=== PATIENT | male | born 1980 | race Caucasian/White ===

== ENCOUNTER 2017-05-22 21:56 | Inpatient (IN) ==
[2017-05-22] MEDS ORDERED: *HR* Morphine 2 MG/ML SYRINGE IVP PRN (23:48)
[2017-05-22] MEDS ORDERED: Naloxone 0.4 MG/ML INJ IVP PRN (23:48)
[2017-05-22] MEDS ORDERED: Ketorolac 15 MG/ML VIAL IVP PRN (23:48)
[2017-05-22] MEDS ORDERED: Acetaminophen 325 MG TABLET PO PRN (23:48)
--- NOTE | 2017-05-23 00:13 | Internal Med History&Physical ---
Date of Encounter: 05/23/17 Time of Encounter: 00:12 Assessment and Plan (1) Septic joint of left knee joint Current visit: No Status: Acute Discussed with ED physician who has discussed the case with Dr Gore Orthopedic surgery. IV fluids, his IV cefepime, and nothing by mouth for now until evaluation by orthopedics in the morning. Blood cultures and fluid analysis fluid culture sent from [place] ED. Send ESR CRP trend lactate Qualifiers: Septic arthritis organism: due to unspecified organism Qualified Code(s): M00.9 - Pyogenic arthritis, unspecified (2) Cellulitis of back Current visit: Yes Status: Acute Cellulitis. Possible early abscess but was unable to express any collection on examination. Continue IV antibiotics cefepime for now. Monitor site closely. Consider I&D if collection worsens (3) Gouty arthritis of toe of left foot Current visit: No Status: Acute Continue medications. IV morphine IV NSAIDs for pain as needed Internal Medicine - H&P: HPI Chief complaint: Left toe swelling, back cellulitis, left knee joint swelling, fever History of present illness: Mr. Chavarria is a 36 year old male who presents as a transfer from [place] ED. He presented with early abscess /cellulitis of his back where his family has been squeezing up for the last few days along with left great toe swelling felt to be related to his hx of gout. He also had a swollen left knee and a temp of 101.4 and completed a knee tap at [facility] with turbid fluid suspicious for septic joint. ED at [place] d/w ortho provider relations consultant Dr Gore and ran through plan of unasyn, transfer to [facility] for further care. Blood cx and knee fluid cx and analysis were sent from [place] to [facility] lab. On review, he admits to THC use but denies IVDU or other drugs Past Med Surg Social Fam HX - Past Medical History Medical history: no medical history, other Psychiatric history: no psych history - Social History Smoking Status: Current every day smoker Smokeless Tobacco Status: No Alcohol use: rarely Drug use: marijuana - Family History Father Living Status: Still Living Hx Family Endocrine Disorder: Yes Internal Medicine - H&P: Meds Colchicine [Mitigare] 0.6 mg PO Q6-8H PRN #21 capsule 05/22/17 [Rx] Etodolac [Etodolac ER] 400 mg PO DAILY #20 tab.er.24h 05/22/17 [Rx] Sulfamethoxazole/Trimeth DS [Bactrim DS] 1 each PO BID #14 tablet 05/22/17 [Rx] Allergies No Known Allergies Allergy (Verified 11/07/16 00:24) All Systems PM: A 10-system review of systems was performed and is negative for pertinent findings except as documented above in the HPI. Review of systems: ROS 14 point review of systems reviewed as best as possible given presentation. Pertinent positive or negative as per HPI or otherwise reviewed as negative - Constitutional Vitals: Temp Pulse Resp BP Pulse Ox 99.0 F 86 17 119/77 98 05/22/17 23:59 05/22/17 23:59 05/22/17 23:59 05/22/17 23:59 05/22/17 23:59 Exam: General - AAO x 3 Psych - Appropriate affect/speech. No agitation Eyes - MALINA. Eye lids intact. No scleral icterus ENT - Oral mucosa pink, dentition intact. External ear clear/dry/intact. No thyromegaly Lymphatics - No cervical/inguinal lympadenopathy Neuro - No gross peripheral or central neuro deficits with intact CN 2-12 exam Heart - Sinus. RRR. S1 and S2 present. No added HS/murmurs appreciated. No elevated JVD appreciated. No calf swellings/erythema Lung - Adequate air entry b/l, No crackes/wheezes appreciated GI - Soft, non-tender. No hepatosplenomegaly/ascities. BS+ - No CVA/suprapubic tenderness or palpable bladder distension Skin - cellulitis of the back MSK - left knee joint swelling, left big toe swelling with erythema
[2017-05-23] MEDS: 0.9 % Sodium Chloride 1,000 ML IVC SCH ×2 (00:57→13:06)
[2017-05-23] MEDS: Cefepime HCl 2,000 MG in D5% in Water (Mini-Bag+) 100 ML IVPB SCH ×2 (03:14→17:19)
[2017-05-23] MEDS ORDERED: D5% in Water 1,000 ML IVC PRN (03:38)
[2017-05-23] MEDS ORDERED: Dextrose Gel 15 GM PO PRN ×2 (03:38)
[2017-05-23] MEDS ORDERED: *HR* Dextrose 50 % in Water (Syg) 50 ML SYRINGE IVP PRN (03:38)
[2017-05-23] MEDS: *HR* Enoxaparin 40 MG/0.4 ML SYRINGE SQ SCH (05:15)
[2017-05-23 06:38] LABS: Hematocrit 41.1 % (37.5-50.1); Hemoglobin 14.4 g/dL (12.9-16.9); Mean Corpuscular Hemoglobin 30.4 pg (28.0-33.3); Mean Corpuscular Volume 86.7 fL (83.0-100.0); Mean Platelet Volume 11.1 fL (9.4-12.4); Platelet Count 212 K/mcL (140-400); Red Blood Count 4.74 M/mcL (4.19-5.50); Red Cell Distribution Width 12.5 % (11.5-14.5)
[2017-05-23 07:02] LABS: BUN/Creatinine Ratio 16 (6-26); Blood Urea Nitrogen 13 mg/dL (8-26); Calcium 9.3 mg/dL (8.6-10.8); Carbon Dioxide 21 mEq/L (19-29); Chloride 107 mEq/L (98-109); Glucose 355 mg/dL (70-99); Osmolality,Calculated 300 (280-300); Sodium 138 mEq/L (136-145); eGFR For African Americans > 60 (> 60); eGFR For Non-African Americans > 60 (> 60)
[2017-05-23 07:03] LABS: C-Reactive Protein 209 mg/L (Less than 5)
[2017-05-23 07:26] LABS: Hemoglobin A1C 7.8 %
--- NOTE | 2017-05-23 07:42 | Orthopedic Consult Note ---
Date of Encounter: 05/23/17 Time of Encounter: 07:40 History of Present Illness HPI: Mr. Chavarria is a 36 year old male With a history of gout, patient seen in the [place] ER yesterday. Temperature spike elevated white cell concern for infection of back and knee. Physical exam Patient no distress. Examination of left knee no swelling or erythema Pain-free range of motion Neurovascular intact No suspicion of infection in left knee. Contacted [place] ER to check on aspiration results from knee nothing reported yet. We will continue to monitor patient with elevated CRP of unknown origin but based on evaluation of left knee which looks normal do not think that this is the source. Past Med Surg Social Fam HX - Past Medical History Medical history: no medical history, other Psychiatric history: no psych history - Social History Smoking Status: Current every day smoker Smokeless Tobacco Status: No Alcohol use: rarely Drug use: marijuana - Family History Father Living Status: Still Living Hx Family Endocrine Disorder: Yes Medications and Allergies Colchicine [Mitigare] 0.6 mg PO Q6-8H PRN #21 capsule 05/22/17 [Rx] Etodolac [Etodolac ER] 400 mg PO DAILY #20 tab.er.24h 05/22/17 [Rx] Sulfamethoxazole/Trimeth DS [Bactrim DS] 1 each PO BID #14 tablet 05/22/17 [Rx] Allergies No Known Allergies Allergy (Verified 11/07/16 00:24) All Systems Reviewed: A 10-system review of systems was performed and is negative for pertinent findings except as documented above in the HPI. Physical Exam - Constitutional Vitals: Temp Pulse Resp BP Pulse Ox 98.7 F 91 16 154/86 96 05/23/17 06:54 05/23/17 06:54 05/23/17 06:54 05/23/17 06:54 05/23/17 06:54 Results - Labs Result Diagrams: 05/23/17 06:28 05/23/17 06:28 Labs: Abnormal lab results WBC 15.9 K/mcL (4.3-11.1) H 05/23/17 06:28 ESR 73 mm/hr (0-10) H 05/23/17 06:28 Glucose 355 mg/dL (70-99) H 05/23/17 06:28 Hemoglobin A1c 7.8 % (-5.6) H 05/23/17 06:28 C-Reactive Protein 209 mg/L (Less than 5) H 05/23/17 06:28 H & H 05/23/17 Range/Units 06:28 Hgb 14.4 (12.9-16.9) g/dL Hct 41.1 (37.5-50.1) % All other labs normal. Consult Discharge Plan - Plan Referrals: Shanda Sotelo CNP [Primary Care Provider] -
[2017-05-23] MEDS ORDERED: Vancomycin 1,000 MG in D5% in Water 250 ML IVPB SCH (07:59)
[2017-05-23] MEDS: Insulin LISPRO 300 UNITS/3 ML VIAL SQ SCH ×4 (09:00→21:19)
[2017-05-23] MEDS: Vancomycin 1,250 MG in D5% in Water 250 ML IVPB SCH ×2 (10:33→21:16)
[2017-05-23] MEDS: Diclofenac Sodium (24 HR) 100 MG TABLET PO SCH (10:39)
[2017-05-23] MEDS: Nicotine 21 MG PATCH.TD24 TD SCH (11:21)
--- NOTE | 2017-05-23 14:26 | Event Note ---
Date of Encounter: 05/23/17 Time of Encounter: 12:35 Pt is a 36y/o male transferred from [place] ER for elevated WBC and swollen left knee concerning for septic arthritis. Pt was seen and examined. He has been evaluated by orthopedic surgery and does not clinically appear to have any infection in the left knee as per orthopedic surgery. He is to continue on empiric abx at this time given leukocytosis and elevated ESR and f/u blood cultures. Noted to be hyperglycemic, increased to high dose insulin sliding scale
[2017-05-23] MEDS ORDERED: Insulin LISPRO 300 UNITS/3 ML VIAL SQ SCH (21:00)
[2017-05-23] MEDS: *HR* HYDROcodone/Acet 5/325 mg TABLET PO PRN (21:22)
--- NOTE | 2017-05-24 01:06 | Orthopedics Progress Note ---
Date of Encounter: 05/24/17 Time of Encounter: 01:04 Subjective Interval history: Patient seen this morning states his knee is feeling better no erythema pain- free motion. Aspiration from [place] preliminary results of Gram stain showed no bacteria many white cells Still low suspicion of septic arthritis continue with present care as per medical team Objective Vital signs: Vital Signs Temp Pulse Resp BP Pulse Ox 05/24/17 00:55 98.2 F 66 17 131/80 97 05/23/17 21:37 98.5 F 78 17 140/80 97 05/23/17 14:16 98.8 F 76 16 144/83 96 05/23/17 10:26 98.5 F 84 18 148/76 95 05/23/17 09:25 96 05/23/17 06:54 98.7 F 91 16 154/86 96 05/23/17 05:04 98.2 F 83 18 158/83 98 Intake and Output 05/23/17 05/23/17 05/24/17 15:59 23:59 07:59 Intake Total 1350 / 1350 1300 / 1300 Output Total 950 / 950 1500 / 1500 Balance 400 / 400 -200 / -200 Intake: IV Fluids 1350 / 1350 250 / 250 0.9 % Sodium Chloride 1, 1000 / 1000 000 ML @ 100 mls/hr IVC . Q10H [facility] Rx#:[id number] Maxipime 2,000 MG In 100 / 100 Dextrose 5% (Minibag+) 100 ML 100 ML @ 200 mls/ hr IVPB Q12H [facility] Rx#: [id number] Vancocin 1,250 MG In 250 / 250 250 / 250 Dextrose 5% 250 ML @ 166. 67 mls/hr IVPB Q12H [facility] Rx#:[id number] Oral 0 / 0 1050 / 1050 Output: Urine 950 / 950 1500 / 1500 Other: Meal Dinner Percent of Meal Consumed 100% Blood Glucose* 355 189 - Labs CBC & BMP: 05/23/17 06:28 05/23/17 06:28 Labs: Abnormal lab results WBC 15.9 K/mcL (4.3-11.1) H 05/23/17 06:28 ESR 73 mm/hr (0-10) H 05/23/17 06:28 Glucose 355 mg/dL (70-99) H 05/23/17 06:28 POC Glucose 189 (58-89) H 05/23/17 20:04 Hemoglobin A1c 7.8 % (-5.6) H 05/23/17 06:28 C-Reactive Protein 209 mg/L (Less than 5) H 05/23/17 06:28 Consult Discharge Plan - Plan Referrals: Shanda Sotelo, POSTAL TRANSPORTATION CLERK [Primary Care Provider] -
[2017-05-24 01:23] LABS: Basophils # 0.1 K/mcL (0.0-0.2); Basophils % 0.3 %; Eosinophils # 0.2 K/mcL (0.0-0.6); Hematocrit 39.3 % (37.5-50.1); Hemoglobin 13.8 g/dL (12.9-16.9); Immature Granulocytes % 0.5 % (0-4); Lymphocytes # 4.2 K/mcL (0.6-4.6); Lymphocytes % 20.2 %; Mean Corpuscular HGB Conc 35.1 g/dL (31.6-35.5); Mean Corpuscular Hemoglobin 30.4 pg (28.0-33.3); Mean Corpuscular Volume 86.6 fL (83.0-100.0); Mean Platelet Volume 10.6 fL (9.4-12.4); Monocytes # 0.9 K/mcL (0.0-1.3); Monocytes % 4.2 %; Neutrophils # 15.4 K/mcL (1.6-8.9); Platelet Count 274 K/mcL (140-400); Red Blood Count 4.54 M/mcL (4.19-5.50); Red Cell Distribution Width 12.5 % (11.5-14.5); Segmented Neutrophils % 73.8 %
[2017-05-24 01:38] LABS: BUN/Creatinine Ratio 19 (6-26); Blood Urea Nitrogen 13 mg/dL (8-26); Calcium 9.4 mg/dL (8.6-10.8); Carbon Dioxide 24 mEq/L (19-29); Chloride 107 mEq/L (98-109); Glucose 151 mg/dL (70-99); Osmolality,Calculated 295 (280-300); Phosphorous 3.3 mg/dL (2.3-4.7); Potassium 3.4 mEq/L (3.5-4.5); Sodium 141 mEq/L (136-145); eGFR For African Americans > 60 (> 60); eGFR For Non-African Americans > 60 (> 60)
[2017-05-24] MEDS: Cefepime HCl 2,000 MG in D5% in Water (Mini-Bag+) 100 ML IVPB SCH ×2 (03:51→16:35)
[2017-05-24] MEDS: *HR* Enoxaparin 40 MG/0.4 ML SYRINGE SQ SCH (05:36)
[2017-05-24] MEDS: 0.9 % Sodium Chloride 1,000 ML IVC SCH (05:36)
[2017-05-24] MEDS: Diclofenac Sodium (24 HR) 100 MG TABLET PO SCH (09:03)
[2017-05-24] MEDS: Nicotine 21 MG PATCH.TD24 TD SCH (09:03)
[2017-05-24] MEDS: Vancomycin 1,250 MG in D5% in Water 250 ML IVPB SCH (09:03)
[2017-05-24] MEDS: Insulin LISPRO 300 UNITS/3 ML VIAL SQ SCH ×4 (09:04→22:36)
--- NOTE | 2017-05-24 11:19 | Internal Med Progress Note ---
Date of Encounter: 05/24/17 Time of Encounter: 11:17 - Assessment and plan (1) Septic joint of left knee joint Current Visit: No Status: Acute Assessment and plan: s/p join aspiration orthopedic consultation appreciated will continue IV abx at this time f/u cultures Qualifiers: Septic arthritis organism: due to unspecified organism Qualified Code(s): M00.9 - Pyogenic arthritis, unspecified (2) Cellulitis of back Current Visit: Yes Status: Acute Assessment and plan: continue empiric IV abx at this time (3) DVT prophylaxis Current Visit: Yes Status: Acute Assessment and plan: Lovenox SQ (4) Electrolyte abnormality Current Visit: Yes Status: Acute Assessment and plan: Hypokalemia K supplemented continue to monitor electrolytes and replace as needed (5) Gouty arthritis of toe of left foot Current Visit: No Status: Chronic - Subjective Interval history: Pt seen and examined at bedside. Pt noted to be ambulating around the [place] and reports of feeling better. Noted to have worsening leukocytosis but denies any fevers or chills. Denies any sob, cough, dysuria. No overnight events reported. - Constitutional Vitals: Temp Pulse Resp BP Pulse Ox 97.7 F 62 15 114/71 96 05/24/17 07:24 05/24/17 07:24 05/24/17 07:24 05/24/17 07:24 05/24/17 07:24 General appearance: Present: A&O X 3, no acute distress - Head Head exam: Present: atraumatic, normocephalic - Eye Eye exam: Present: conjuntiva pink, sclera anicteric - Respiratory Respiratory exam: Present: CTAB. Absent: accessory muscle use, rales, rhonchi, wheezes - Cardiovascular Cardiovascular exam: Present: RRR, +S1, +S2. Absent: diastolic murmur, gallop, rubs, systolic murmur - GI/Abdominal GI/Abdominal exam: Present: normal bowel sounds, soft, no peritoneal signs. Absent: distended, tenderness - Extremities Exam Extremities exam: Present: warm, radial pulses palpable and symetrical (left knee swelling, mild erythema noted). Absent: calf tenderness - Neurological Exam Neurological exam: Present: alert, oriented X3 - Psychiatric Psychiatric exam: Present: normal affect, normal mood - Skin Additional comments: erythema noted on lower right lateral back Internal Medicine: Result - Labs CBC & Chem 7: 05/24/17 01:10 05/24/17 01:10 Labs: Short CBC 05/24/17 Range/Units 01:10 WBC 20.9 H (4.3-11.1) K/mcL Hgb 13.8 (12.9-16.9) g/dL Hct 39.3 (37.5-50.1) % Plt Count 274 (140-400) K/mcL Neutrophils # 15.4 H (1.6-8.9) K/mcL BMP 05/24/17 01:10 Sodium 141 Potassium 3.4 L Chloride 107 Carbon Dioxide 24 BUN 13 Creatinine 0.67 L Glucose 151 H Calcium 9.4 Consult Discharge Plan - Plan Referrals: Shanda Sotelo, KNOWLEDGE ARCHITECT [Primary Care Provider] -
[2017-05-24 11:20] LABS: Bilirubin,Urine Negative (Negative); Blood,Urine Negative (Negative); Clarity,Urine Clear (Clear); Color,Urine Yellow (Yellow); Glucose,Urine (UA) Normal (Normal); Ketones,Urine Negative (Negative); Leukocyte Esterase,Urine Negative (Negative); Nitrite,Urine Negative (Negative); Protein,Urine Negative (Neg-Trace); Urobilinogen,Urine Normal (Normal)
[2017-05-24] MEDS: Vancomycin 1,500 MG in D5% in Water 250 ML IVPB SCH (22:36)
[2017-05-24] MEDS: *HR* HYDROcodone/Acet 5/325 mg TABLET PO PRN (22:58)
[2017-05-25] MEDS: Cefepime HCl 2,000 MG in D5% in Water (Mini-Bag+) 100 ML IVPB SCH (04:14)
[2017-05-25] MEDS: *HR* Enoxaparin 40 MG/0.4 ML SYRINGE SQ SCH (05:12)
[2017-05-25 05:31] LABS: Basophils # 0.1 K/mcL (0.0-0.2); Basophils % 0.9 %; Eosinophils # 0.5 K/mcL (0.0-0.6); Eosinophils % 3.9 %; Hematocrit 42.2 % (37.5-50.1); Hemoglobin 14.4 g/dL (12.9-16.9); Immature Granulocytes % 0.7 % (0-4); Lymphocytes # 4.5 K/mcL (0.6-4.6); Mean Corpuscular HGB Conc 34.1 g/dL (31.6-35.5); Mean Corpuscular Hemoglobin 29.8 pg (28.0-33.3); Mean Corpuscular Volume 87.2 fL (83.0-100.0); Mean Platelet Volume 10.5 fL (9.4-12.4); Monocytes # 0.6 K/mcL (0.0-1.3); Monocytes % 4.9 %; Neutrophils # 6.7 K/mcL (1.6-8.9); Platelet Count 321 K/mcL (140-400); Red Blood Count 4.84 M/mcL (4.19-5.50); Red Cell Distribution Width 12.6 % (11.5-14.5); Segmented Neutrophils % 53.6 %
[2017-05-25 05:47] LABS: BUN/Creatinine Ratio 16 (6-26); Blood Urea Nitrogen 11 mg/dL (8-26); Calcium 9.2 mg/dL (8.6-10.8); Carbon Dioxide 26 mEq/L (19-29); Chloride 107 mEq/L (98-109); Glucose 126 mg/dL (70-99); Magnesium 1.7 mg/dL (1.6-2.6); Osmolality,Calculated 297 (280-300); Potassium 3.4 mEq/L (3.5-4.5); Sodium 143 mEq/L (136-145); eGFR For African Americans > 60 (> 60); eGFR For Non-African Americans > 60 (> 60)
[2017-05-25 05:48] LABS: Phosphorous 5.3 mg/dL (2.3-4.7)
[2017-05-25] MEDS: Diclofenac Sodium (24 HR) 100 MG TABLET PO SCH (07:45)
[2017-05-25] MEDS: Nicotine 21 MG PATCH.TD24 TD SCH (07:45)
[2017-05-25] MEDS: Insulin LISPRO 300 UNITS/3 ML VIAL SQ SCH ×2 (07:49→13:25)
[2017-05-25] MEDS ORDERED: Potassium Chloride Elixir 20 MEQ/15 ML UDC PO ONE (08:30)
--- NOTE | 2017-05-25 08:54 | Orthopedics Progress Note ---
Date of Encounter: 05/25/17 Time of Encounter: 08:53 Subjective Interval history: Cultures reviewed no growth from left knee aspiration. Objective Vital signs: Vital Signs Temp Pulse Resp BP Pulse Ox 05/25/17 07:45 98.1 F 65 15 172/100 99 05/25/17 03:46 97.5 F L 63 16 126/74 94 05/25/17 00:03 98.3 F 62 18 123/79 97 05/24/17 22:42 96 05/24/17 19:35 98.5 F 70 18 130/87 97 05/24/17 15:26 98.1 F 72 16 128/79 99 05/24/17 11:18 98.1 F 68 16 130/86 98 Intake and Output 05/24/17 05/25/17 05/25/17 23:59 07:59 15:59 Intake Total 300 / 300 400 / 400 Output Total 1065 / 1065 1600 / 1600 Balance -765 / -765 -1200 / -1200 Intake: IV Fluids 100 / 100 Maxipime 2,000 MG In 100 / 100 Dextrose 5% (Minibag+) 100 ML 100 ML @ 200 mls/ hr IVPB Q12H [facility] Rx#: [id number] Oral 200 / 200 400 / 400 Output: Urine 1065 / 1065 1600 / 1600 Other: # Voids 1 Weight 89.5 kg Blood Glucose* 150 Patient Weight 05/25/17 23:59 Weight 89.5 kg - Labs CBC & BMP: 05/25/17 04:42 05/25/17 04:42 Labs: Abnormal lab results WBC 12.6 K/mcL (4.3-11.1) H 05/25/17 04:42 ESR 73 mm/hr (0-10) H 05/23/17 06:28 Potassium 3.4 mEq/L (3.5-4.5) L 05/25/17 04:42 Creatinine 0.70 mg/dL (0.72-1.25) L 05/25/17 04:42 Glucose 126 mg/dL (70-99) H 05/25/17 04:42 POC Glucose 150 (58-89) H 05/24/17 21:10 Hemoglobin A1c 7.8 % (-5.6) H 05/23/17 06:28 Phosphorus 5.3 mg/dL (2.3-4.7) H D 05/25/17 04:42 C-Reactive Protein 209 mg/L (Less than 5) H 05/23/17 06:28 Ur Specific [place] 1.030 (1.010-1.025) H 05/24/17 10:40 Vancomycin Trough 7.2 mcg/mL (10-20) L 05/24/17 20:58 Consult Discharge Plan - Plan Referrals: Shanda Sotelo, COMMERCIAL CONSTRUCTION SUPERINTENDENT [Primary Care Provider] -
[2017-05-25] MEDS: Vancomycin 1,500 MG in D5% in Water 250 ML IVPB SCH (09:52)
[2017-05-25 11:53] VITALS: BP 157/97
--- NOTE | 2017-05-25 14:45 | Discharge Summary ---
Date of Encounter: 05/25/17 Time of Encounter: 14:43 - Discharge Diagnosis (1) Cellulitis of back Priority: Primary Status: Acute (2) Abscess of back Priority: Primary Status: Acute (3) Gouty arthritis of toe of left foot Priority: Secondary Status: Chronic (4) Left knee pain Priority: Primary Status: Chronic Qualifiers: Chronicity: acute Qualified Code(s): M25.562 - Pain in left knee (5) Diabetes mellitus Priority: Secondary Status: Chronic Qualifiers: Diabetes mellitus type: type 2 Diabetes mellitus complication status: with unspecified complications Diabetes mellitus manager long term care insulin use: without manager long term care use Qualified Code(s): E11.8 - Type 2 diabetes mellitus with unspecified complications - Discharge Medications Prescriptions: Amoxicillin/Clavulanate [Augmentin] 875 mg PO BIDWM #14 tablet Doxycycline 100 mg PO BID #14 capsule metFORMIN [Glucophage] 500 mg PO BIDWM #60 tablet Home Medications: Amoxicillin/Clavulanate [Augmentin] 875 mg PO BIDWM #14 tablet 05/25/17 [Rx] Doxycycline 100 mg PO BID #14 capsule 05/25/17 [Rx] metFORMIN [Glucophage] 500 mg PO BIDWM #60 tablet 05/25/17 [Rx] Allergies/Adverse Reactions: Allergies No Known Allergies Allergy (Verified 05/23/17 12:17) Date of admission: 05/23/17 02:15 Primary care physician: Shanda Sotelo CNP Consults: 05/23/17 00:05 Consult to Orthopedic Surgery [CONS] Routine Consulting Provider: [facility] Reason for Consult: possible septic joint. Did not place call overnight since ED at [place] called in about patient Call Completed: No 05/25/17 13:34 Consult to Communication Analyst [CONS] Routine Reason for SW Consult: HELP WITH PRESCRIPTION COST PRIMARY CARE PHYSICAN NEEDED Discharging clinician: Sameera Mejia Anticipated date of discharge: 05/25/17 - Patient Status Disposition: Home, Self-Care Condition: Good Functional capacity at discharge: independent ambulation Overall status at discharge: patient is progressing back to baseline - Discharge Instructions Follow Up With: Shanda Sotelo CNP [Primary Care Provider] - Additional Instructions: F/up with PCP- new appointment in 1-2 weeks F/up with Dental office in 1 week - Diet and Activity Activity: resume usual activities as tolerated Diet: diabetic diet, low salt diet Hospital course: Mr. Chavarria is a 36 year old male with no medical follow-up was admitted with left great toe and knee pain along with small abscess and cellulitis on his posterior trunk. He underwent left knee aspiration in the emergency room and was started on IV antibiotics-cefepime and vancomycin for possible septic arthritis. He was seen by orthopedic surgery, blood cultures and synovial fluid culture showed no bacterial growth. He is stable to be discharged from orthopedic standpoint without antibiotics. Patient will need to be scheduled with new primary care physician. He is also noted to have untreated diabetes with hemoglobin A1c 7.8%. He had uncontrolled blood sugars initially, which are currently better controlled with insulin. He is being discharged on oral metformin. His leukocytosis improved and he is currently medically stable for discharge on oral antibiotics for cellulitis. - Time Spent with Patient Total time spent providing and/or coordinating discharge services: Greater than 30 minutes (40 min) - Constitutional Vitals: Temp Pulse Resp BP Pulse Ox 98.3 F 83 16 157/97 95 05/25/17 11:46 05/25/17 11:46 05/25/17 11:46 05/25/17 11:46 05/25/17 11:46 General appearance: Present: A&O X 3 (anxious about being discharged), answers questions appropriately - Respiratory Respiratory exam: Present: CTAB. Absent: accessory muscle use, rales, rhonchi, wheezes - Skin Skin exam: Present: dry, intact Additional comments: right upper back with small healed abscess and surrounding improving cellulitis
== END 2017-05-25 16:10 | disposition home or self-care (01) | DRG 638 ==
LOC: 3NENU
PROVIDERS: ADMIT Internal Medicine Hematology & Oncology; ATTEND Internal Medicine